=== PATIENT | male | born 1965 | race Caucasian/White ===

== ENCOUNTER 2016-10-30 17:49 | Emergency (ER) | payer MEDICAID ==
[2015-08-12 03:58] VITALS: BMI 27.3
[~2016-10-30 17:49] MED LIST: KEFLEX500 MG PO; PERCOCET 10/3251 TA1 PO
== END 2016-10-30 18:45 | disposition home or self-care (01) ==
LOC: D.ER 17:49
DX: J20.9 Acute bronchitis, unspecified (principal)